=== PATIENT | male | born 1990 | race Caucasian/White ===

== ENCOUNTER 2019-01-16 12:53 | Emergency (ER) | payer BC ==
[2019-01-16 13:45] VITALS: BP 124/84
--- NOTE | 2019-01-16 14:41 | UC ---
Throat Pain/Nasal Martinez HPI - HPI Summary HPI Summary: 28-year-old male comes in with a chief complaint of upper respiratory tract infection symptoms for 3 days. Discussed runny nose.. Sinuses are stopped up. Did have left ear pressure earlier it's better now. No wheezes no shortness of breath.. - History of Current Complaint Chief Complaint: UCGeneralIllness Stated Complaint: QUIGLEY,BILAT EAR PAIN,STUFFY NOSE,ST Time Seen by Provider: 01/16/19 14:31 Pain Intensity: 0 - Allergies/Home Medications Allergies/Adverse Reactions: Allergies Allergy/AdvReac Type Severity Reaction Status Date / Time cefaclor [From Ceclor] Allergy Hives Verified 01/16/19 13:47 sulfamethoxazole Allergy Hives Verified 01/16/19 13:47 [From Bactrim] trimethoprim [From Bactrim] Allergy Hives Verified 01/16/19 13:47 Home Medications: Home Medications NK [No Home Medications Reported] 01/16/19 [History Confirmed 01/16/19] PMH/Surg Hx/FS Hx/Imm Hx Previously Healthy: Yes - Surgical History Surgical History: None - Family History Known Family History: Positive: Non-Contributory - Social History Alcohol Use: Rare Substance Use Type: None Smoking Status (MU): Former Smoker When Did the Patient Quit Smoking/Using Tobacco: November 2018 Review of Systems All Other Systems Reviewed And Are Negative: Yes Constitutional: Positive: Negative Skin: Positive: Negative Eyes: Positive: Negative ENT: Positive: Ear Ache, Nasal Discharge, Sinus Congestion Respiratory: Positive: Negative Cardiovascular: Positive: Negative Gastrointestinal: Positive: Negative Motor: Positive: Negative Neurovascular: Positive: Negative Musculoskeletal: Positive: Negative Neurological: Positive: Negative Psychological: Positive: Negative Is Patient Immunocompromised?: No Physical Exam Triage Information Reviewed: Yes Appearance: No Pain Distress, Well-Nourished, Ill-Appearing - MILD Vital Signs: Initial Vital Signs Temp 97.3 F 01/16/19 13:40 Pulse 80 01/16/19 13:40 Resp 16 01/16/19 13:40 BP 124/84 01/16/19 13:40 Pulse Ox 97 01/16/19 13:40 Vital Signs Reviewed: Yes Eye Exam: Normal Eyes: Positive: Conjunctiva Clear Neck: Positive: Supple Respiratory: Positive: Lungs clear, Normal breath sounds, No respiratory distress Cardiovascular: Positive: RRR Musculoskeletal: Positive: Strength Intact, ROM Intact Neurological: Positive: Alert Psychological: Positive: Age Appropriate Behavior Skin Exam: Normal Throat Pain/Nasal Course/Dx - Differential Dx/Diagnosis Provider Diagnosis: Upper respiratory infection Discharge ED - Sign-Out/Discharge Documenting (check all that apply): Patient Departure All imaging exams completed and their final reports reviewed: No Studies - Discharge Plan Condition: Stable Disposition: HOME Patient Education Materials: Upper Respiratory Infection (ED) Forms: *Work Release Referrals: Anca Grant MD [Primary Care Provider] - Additional Instructions: FOLLOW UP WITH YOUR DOCTOR IF NOT COMPLETELY IMPROVED. GET REEVALUATED SOONER IF NOT IMPROVING OR YOUR CONDITION WORSENS OR ANY QUESTIONS OR CONCERNS - Billing Disposition and Condition Condition: STABLE Disposition: Home
== END 2019-01-16 14:45 | disposition home or self-care (01) ==
LOC: EDSEX → UCCORT 12:53
DX: J06.9 Acute upper respiratory infection, unspecified (principal); Z87.891 Personal history of nicotine dependence; Z88.1 Allergy status to other antibiotic agents; Z88.2 Allergy status to sulfonamides
CPT/HCPCS: 99201; G0463